=== PATIENT | male | born 1990 | race Caucasian/White ===

== ENCOUNTER 2019-04-15 08:51 | Outpatient (CLI) | payer OTHER ==
[2014-02-27 16:48] VITALS: BP 128/62
[2019-04-23 08:10] LABS: eGFR (Non-African) > 60
[2019-04-23 08:11] LABS: BASOPHILS % 3.6 % (0.0-1.5); NEUTROPHILS # 2.1 # k/uL (1.4-7.7)
== END 2019-04-15 08:56 | disposition home or self-care (01) ==
LOC: LAB 08:51
PROVIDERS: ATTEND Nurse Practitioner Family
DX: R07.9 Chest pain, unspecified (principal); R61 Generalized hyperhidrosis
CPT/HCPCS: 36415; 71046; 80053; 82550; 82553; 84484; 85025

== ENCOUNTER 2019-07-03 16:29 | Emergency (ER) | payer OTHER ==
[2019-07-03 16:39] VITALS: BP 153/84
--- NOTE | 2019-07-03 16:43 | ED Physician Documentation ---
Upper Extremity Problem - HISTORIAN Historian: patient - HPI Stated Complaint: L Elbow pain Chief Complaint: Upper Extremity Injury Location: L elbow, L forearm Onset: hours (1) Timing: still present, better Recent Injury: Yes Where: other (fell in a parking lot) Severity: moderate (5/10 was 10/10 ) Exacerbated By: change in position Relieved By: rest Quality: pain, tenderness Further Comments: yes (He reports he fell and fell right on his elbow /forearm . He has no decrease in ROM and he has pain with touch and movement of lower forearm He has not taken any OTC meds. No loss of sensation No other complaints) - ROS CONST: no problems EYES/ENT: none - PAST HX Past History: none Immunizations: UTD Allergies/Adverse Reactions: Allergies Allergy/AdvReac Type Severity Reaction Status Date / Time No Known Allergies Allergy Verified 07/03/19 16:39 Home Medications: Ambulatory Orders Medication Instructions Recorded NK 06/12/13 - SOCIAL HX Smoking History: non-smoker Alcohol Use: none - FAMILY HX Family History: none - VITAL SIGNS Vital Signs: Vital Signs Temp Pulse Resp BP Pulse Ox 77 16 153/84 98 07/03/19 16:35 07/03/19 16:35 07/03/19 16:35 07/03/19 16:35 - REVIEWED ASSESSMENTS Nursing Assessment Reviewed: Yes Vitals Reviewed: Yes Progress - Progress Progress: 1733: results and plan discussed pt agreeable DG ED Results Lab/Radiology - Radiology Radiology Impressions: 2 views left elbow Clinical history: Left elbow pain Findings: There is no acute fracture dislocation. No joint effusion. Electronically signed on Jul 03, 2019 5:06:43 PM CDT by: Wallace Story The exam title should state 2 views left forearm Addendum electronically signed by Wallace Story on July 03, 2019 5:08:04 PM CDT 3 views left elbow Clinical history: Left elbow pain Findings: There is no acute fracture dislocation. Alignment is normal. No joint effusion. Electronically signed on Jul 03, 2019 5:07:32 PM CDT by: Wallace Story - Orders Orders: ED Orders Category Date Time Status ELBOW 3 VIEWS [RAD] Stat Exams 07/03/19 Taken FOREARM XR [FOREARM 2 VIEWS] [RAD] Stat Exams 07/03/19 Taken Ketorolac Tromethamine [Toradol] Med 07/03/19 17:32 Once 60 mg IM NOW ONE Upper Extremity Problem - EXAM General Appearance: no acute distress, alert Skin: warm/dry Shoulder Exam: normal inspection Elbow/Forearm Exam: pain (with pronation and supanation pulses + and sensation + cap refill + ) Wrist Exam: normal inspection Hand Exam: normal inspection EENT: eye inspection normal, no signs of dehydration CVS: reg rate & rhythm, heart sounds normal Peripheral: sensation nml Central: oriented X3 Respiratory: no resp. distress Abdomen: non-tender Discharge Clincal Impression: Left elbow pain Referrals: Primary Doctor,No [Primary Care Provider] - 2 Days Comments: 1. OTC meds as directed as needed for pain 2. Ice to the area for comfort 3. FOllow up with PCP if any needed concerns remain 4. Return to ER for any increasing concerns Condition: Stable Disposition: 01 HOME, SELF-CARE Decision to Admit: NO Date of Decison to Admit: 07/03/19 Decision Time: 17:36
[2019-07-03] MEDS: KETOROLAC TROMETHAMINE 60 MG/2 ML VIAL IM ONE (17:37)
--- NOTE | 2019-07-04 09:57 | Diagnostic Imaging Report ---
CURT SHEPHERD [facility] [address] [facility] [address] [place], [place]. [address] Report Submission Date: Jul 03, 2019 5:07:32 PM CDT Patient Study Name: BRIAN BARR Date: Jul 03, 2019 4:43:58 PM CDT Modality Type: DX Gender: M Description: ELBOW 3 VIEWS : 91 Institution: [facility] Physician: CURT SHEPHERD 3 views left elbow Clinical history: Left elbow pain Findings: There is no acute fracture dislocation. Alignment is normal. No joint effusion. Electronically signed on Jul 03, 2019 5:07:32 PM CDT by: Wallace SOUZA
--- NOTE | 2019-07-04 09:58 | Diagnostic Imaging Report ---
CURT SHEPHERD [facility] [address] [facility] [address] [place], [place]. [address] Report Submission Date: Jul 03, 2019 5:06:43 PM CDT Patient Study Name: BRIAN BARR Date: Jul 03, 2019 4:43:58 PM CDT Modality Type: DX Gender: M Description: FOREARM 2 VIEWS : 91 Institution: [facility] Physician: CURT SHEPHERD 2 views left elbow Clinical history: Left elbow pain Findings: There is no acute fracture dislocation. No joint effusion. Electronically signed on Jul 03, 2019 5:06:43 PM CDT by: Wallace Story The exam title should state 2 views left forearm Addendum electronically signed by Wallace Story on July 03, 2019 5:08:04 PM CDT [facility]
== END 2019-07-03 17:48 | disposition home or self-care (01) ==
LOC: ED 16:29
DX: M25.522 Pain in left elbow (principal); W19.XXXA Unspecified fall, initial encounter; Y92.481 Parking lot as the place of occurrence of the external cause
CPT/HCPCS: 73080; 73090; 96372; 99282; 99284; J1885